=== PATIENT | male | born 1960 | race Caucasian/White ===

== ENCOUNTER 2024-08-18 18:40 | Emergency (ER) | payer OTHER, SELFPAY ==
[2024-08-18 18:59] LABS: % Basophils 0.6 % (0-2); % Eosinophils 4.5 % (0-6); % Immature Granulocytes 0.3 % (0-0.5); % Lymphocytes 17.1 % (20.5-51.1); % Monocytes 12.7 % (1.7-9.3); % Neutrophils 64.8 % (42.2-75.2); Absolute Eosinophils 0.3 10^3/uL (0-0.7); Absolute Lymphocytes 1.2 10^3/uL (1.2-3.4); Absolute Monocytes 0.9 10^3/uL (0.1-0.6); Absolute Neutrophils 4.5 10^3/uL (1.4-6.5); Hematocrit 39.1 % (39.0-52.0); Hemoglobin 14.2 g/dL (13.0-18.0); Mean Corp Hgb Conc. 36.3 g/dL (33.0-37.0); Mean Corpuscular Hgb 32.3 pg (27.0-31.0); Mean Corpuscular Volume 88.9 fL (80.0-94.0); Mean Platelet Volume 9.9 fL (7.4-10.4); Nucleated Red Blood Cells % 0 % (-); Platelet Count 255 10^3/uL (130-400); Red Cell Dist. Width 12.8 % (11.5-14.5); White Blood Cell Count 6.9 10^3/uL (4.8-10.8)
[2024-08-18 19:15] LABS: ALT (SGPT) 36 U/L (0-50); AST (SGOT) 42 U/L (17-59); Albumin 4.7 g/dl (3.5-5.0); Alkaline Phosphatase 59 U/L (38-126); Blood Urea Nitrogen 21 mg/dl (9-20); Calcium 9.8 mg/dl (8.4-10.2); Carbon Dioxide 24 mmol/L (22-30); Chloride 107 mmol/L (98-107); Glucose 114 mg/dl (70-99); Potassium 3.8 mmol/L (3.5-5.1); Sodium 140 mmol/L (135-145); Total Bilirubin 0.7 mg/dl (0.2-1.3); Total Protein 7.3 g/dl (6.3-8.2); eGFR > 60.00
[2024-08-18 19:26] LABS: Troponin I < 0.012 ng/ml
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
[2024-08-18 19:56] VITALS: BP 124/65
== END 2024-08-18 20:32 | disposition home or self-care (01) ==
LOC: EMR 18:40
PROVIDERS: EMERGENCY PHYSICIAN Student in an Organized Health Care Education/Training Program; FAMILY PHYSICIAN Physician Assistant Medical
DX: R55 Syncope and collapse (principal)
CPT/HCPCS: 99284; 80053; 84484; 85025; 93005

== ENCOUNTER 2024-08-20 08:24 | Inpatient (IN) | payer OTHER, SELFPAY ==
[2024-08-18 21:23] VITALS: BP 146/81
[2024-08-18 21:24] VITALS: BP 146/81; BMI 37.4
--- NOTE | 2024-08-18 21:36 | ED.GENMED ---
History of Present Illness
General
Chief Complaint: Fainting/Passed Out
Source: patient, spouse and family
Time Seen by Provider: 08/18/24 21:26
History of Present Illness
History of Present Illness:
Note:
CHIEF COMPLAINT(S)
Syncope episodes
HISTORY OF PRESENT ILLNESS
The patient is a 64-year-old male with a history of hypertension who presented back to the emergency department after experiencing another syncopal episode after getting home from being seen in the ED earlier this evening for the same.. He reports
the most recent episode as being shorter in duration than the first. Prior to the episodes, he was outside working in the yard all day with limited fluid intake. Following the incidents, the patient conveyed an unusual feeling of not feeling well.
At time of my exam again patient reports feeling in his usual state of health.
ADDITIONAL HISTORY OBTAINED FROM SOURCES OTHER THAN THE PATIENT
According to the patient�s son, the patient stated that he 'doesnt feel good' prior to the syncope episodes.
SOCIAL HISTORY
The patient does not currently smoke and quit smoking over a year ago. He denies recent alcohol use and any marijuana use.
Past History
Past History
ED Past Medical History: Other (Suspected early dementia)
ED Past Surgical History: None
Social History
Tobacco: Non-smoker
Alcohol: Occasional
Drug: None
Personal:
Living: with family
Review of Systems
Review of Systems
All Other Systems: ROS reviewed and negative except as documented in HPI and ROS
Phy Exam
Physical Exam
Physical Exam:
GENERAL: Alert , in no apparent distress
EYE: conjunctiva clear
NECK: Supple
ENT: o/p clr, mmm.
CARDIAC: Regular rate and rhythm
LUNGS: Clear breath sounds bilaterally, no acute respiratory distress, no wheezes/rales/rhonchi
NEUROLOGICAL: Alert and oriented
SKIN: Warm and dry, skin intact.
MUSCULOSKELETAL: well perfused.
PSYCH: Normal and appropriate interaction.
Scores
Heart Failure Risk
Heart Failure Risk Score: Not Applicable
Heart Score for Chest Pain Patients
STEMI patient?: Not applicable
Withdrawal Assessment of Alcohol
Withdrawal Assessment Completed?: Not applicable
Course
Orders/Labs/Results
Orders:
Orders
08/18/24 21:23
Electrocardiogram (*1) Urgent
Reason for Study: Syncope
EKG- Treatment ONCE
08/18/24 23:00
Flush (0.9% Sodium Chloride) [Flush (Nss)] See Dose Instructions IV PER PROTOCOL
08/18/24 21:22
08/18/24 21:22
Vital Signs
Initial and Last Documented VS:
Initial Vital Signs
Pulse Resp BP
63 19 146/81
08/18/24 21:23 08/18/24 21:23 08/18/24 21:23
Last Documented Vital Signs
Temp Pulse Resp BP Pulse Ox
98.0 F 68 15 146/81 98
08/18/24 21:24 08/18/24 21:30 08/18/24 21:30 08/18/24 21:24 08/18/24 21:40
MDM/Problems Addressed
Differential Diagnosis Includes:
The Differential Diagnosis includes, in no particular order and is not limited to:
- Vasovagal syncope
- Cardiac arrhythmia
- Orthostatic hypotension
- Dehydration
- Hypoglycemia
- Electrolyte imbalance
- Autonomic dysfunction
- Medication side effects
- Neurological disorder
- Myocardial infarction
MDM/Problems Addressed:
The patient will be admitted for overnight observation with a child monitor in place given he was just seen here earlier this evening for syncope as well.. The possibility of consulting with cardiology in the morning will be determined by the
hospitalist team.
*Pulse Oximetry
SaO2: 98
Oxygen Mode of Delivery: Room air
*EKG
Heart Rate: 68
Rate: normal
Rhythm: sinus
[place]: normal axis
Ischemia: no ischemia
*Rehab Therapist Interpretation
Rate: normal
Heart Rate: 71
Rhythm: sinus
*Critical Care Note
Total Time (30-74mins, 75-104mins- exclusive of procedures): Not Applicable
Patient Management
Discussion with other providers: Hospitalist
Escalation/DeEscalation of care consider admission/obs:
Hospitalist team aware and accepts for continued evaluation and treatment
ED Attending Note
-
Portions of this chart may have been created with voice recognition software.� Occasional wrong word or��sound alike� substitutions may have occurred due to the inherent limitations of voice recognition software.
Discharge Plan
Departure
Patient Disposition: Admit
Date of Disposition: 08/18/24
Time of Disposition: 21:36
Presentation/result/management discussed w/ accepting MD/DO: Hospitalist
Discharge Problem:
Syncope
Prescriptions:
No Action
donepezil 5 mg Tablet
5 mg PO HS
naproxen 500 mg Tablet,Delayed Release (Dr/Ec)
500 mg PO Q12H
hydrochlorothiazide 25 mg Tablet
25 mg PO DAILY
lisinopril 40 mg Tablet
40 mg PO DAILY
rosuvastatin 10 mg Tablet
10 mg PO DAILY
Interventions
Interventions:
*Risk Screen - Suicide Last Done: 08/18/24 21:24
*General Assessment Last Done: 08/18/24 21:24
*Neglect/Abuse Screening Last Done: 08/18/24 21:24
*ED- Fall Risk Assessment Last Done: 08/18/24 21:24
*ED COVID-19 Vaccine History Last Done: 08/18/24 21:24
ED- Cardiac Assessment Last Done: 08/18/24 21:47
ED- Neurological Assessment Last Done: 08/18/24 21:47
Discharge Date and Time
Print Language: CENTRAL AFRICAN
[2024-08-18 22:00] VITALS: BP 118/64
--- NOTE | 2024-08-18 22:18 | HPS.HSE ---
Family Physician
-
Family Physician: BRUNO DA SILVA PA-C
Chief Complaint
-
Recurrent syncopal episode
History of Present Illness
This is a 64-year-old male with past medical history of hyperlipidemia, hypertension, recent diagnosis of dementia and started on donepezil 2 weeks ago presenting to the emergency department with recurrent syncopal episode x 1 day.
Patient and spouse reported that they have been working in the yard earlier in the day taking care of damage from a recent stone. The apparently were hydrating themselves orally. After few hours of days patient was sitting down on a kitchen table
when all of a sudden he became unresponsive. Patient himself is unaware of this episode. It lasted for about a minute or less and then he came back to. There was no postictal depression. There was no bladder or bowel incontinence. Patient did
not collapse with this episode. He had no prodromal symptoms.
Was seen in the emergency department and had an extensive evaluation which showed no acute abnormality. He was hydrated with a liter of normal saline and was ultimately discharged.
After arriving home the patient sat down on the kitchen table and again had a syncopal episode. This time he reported that he told his son that he was not feeling well and then had a brief syncopal episode again lasting less than a minute before he
came to without any other associated symptoms. Denied having any chest pain recently. He denies any palpitations. He denies feeling dizzy or lightheaded. Only new medications with an episode that started 2 weeks ago. He has no recent episode of
melena hematochezia diarrhea nausea or vomiting.
Patient has no history of coronary artery disease but has a strong family history of pulmonary artery disease in parents.
In the emergency department he was afebrile, blood pressure was normal. He was not tachycardic and oxygen saturation was normal.
ECG showed a normal sinus rhythm at a rate of [address] or T wave changes. Initial troponin was negative. Electrolytes were all within the normal range. BUN/creatinine were normal. LFTs normal.
Medical History
Past Medical History
Past Medical History: Reports Dementia, HTN and Hypercholesterolemia
Past Surgical History: Reports None
Social History
Tobacco: Former Smoker
Alcohol: Former
Drug: None
Personal:
Living: With Family
Employment: Not Employed
Family History
Family History: CAD
Allergies / Home Medications
Allergies reflects when Allergies were last updated in [facility].
Home Medications with original date entered in [facility]
Allergy/Medication List:
Allergies
Allergy/AdvReac Type Severity Reaction Status Date / Time
No Known Allergies Allergy Verified 08/18/24 21:34
Home Medications
donepezil 5 mg tablet 5 mg PO HS 08/18/24
hydrochlorothiazide 25 mg tablet 25 mg PO DAILY 08/18/24
lisinopril 40 mg tablet 40 mg PO DAILY 08/18/24
naproxen 500 mg tablet,delayed release 500 mg PO Q12H 08/18/24
rosuvastatin 10 mg tablet 10 mg PO DAILY 08/18/24
Review of Systems
-
History Source: Patient and Family
Constitutional: Reports No Symptoms
EENT: Reports No Symptoms
Respiratory: Reports No Symptoms
Cardiac: Reports No Symptoms
Abdomen/GI: Reports No Symptoms
: Reports No Symptoms
Musculoskeletal: Reports No Symptoms
Skin: Reports No Symptoms
Neurological: Reports No Symptoms
Endocrine: Reports No Symptoms
Hematologic/Lymphatic: Reports No Symptoms
Psych: Reports No Symptoms
Physical Exam
Vital Signs
Vital Signs
Temp Pulse Resp BP Pulse Ox
98.0 F 68 15 146/81 98
08/18/24 21:24 08/18/24 21:30 08/18/24 21:30 08/18/24 21:24 08/18/24 21:40
Physical Exam
General: Well Developed, Well Nourished and No Apparent Distress
HEENT: NormoCephalic, Moist mucous membranes and Atraumatic
Respiratory: Clear
Cardiac: S1/S2 and Regular Rhythm; No Murmur or Rub
GI: Soft, Non Tender, Non Distended and Normal Bowel Sounds; No Organomegaly
Rectal: Deferred by Provider
Musculoskeletal: No Clubbing, No Cyanosis and No Edema
Skin: No Rash
Neuro: Nonfocal/grossly intact
Laboratory Results
-
08/18/24 21:22
08/18/24 21:22
Laboratory Results
Total Bilirubin Cancelled 08/18/24 21:22
AST Cancelled 08/18/24 21:22
ALT Cancelled 08/18/24 21:22
Alkaline Phosphatase Cancelled 08/18/24 21:22
Troponin I Cancelled 08/18/24 21:23
Data Reviewed
-
Medical Tests (Nuc Med, Echo, EKG etc): Image Personally Visualized and interpreted
Lab Data: Labs Reviewed by me
Old Records: Reviewed
Impression/Plan
-
IMPRESSION:
64-year-old with history of hypertension and recent diagnosis of dementia started on donepezil presents to the emergency department with 2 episodes of syncope/presyncope lasting less than a minute each. The second episode occurred after initial ED
evaluation and hydration and associated with sensation of feeling sick. His labs are completely within normal limits. Vital signs are currently stable. ECG is sinus without ischemic changes and troponin is negative.
PLAN:
1. Syncope -stable patient with no known cardiac history and no significant offending medications. Although low likelihood there is possibility that this may be related to bradycardia arrhythmia given the type of presentation. No usual kamron
agents.
- Admit to telemetry
- Cycle cardiac enzyme
- Check echocardiogram in the morning
- Orthostatic vital sign
- hold donepezil
- If no events on telemetry, will consider ambulatory monitoring.
- Continue lisinopril and thiazide
DVT prophylaxis�Lovenox subcu
CODE STATUS�full code
[2024-08-18 22:22] VITALS: BP 122/62
[2024-08-18 23:00] VITALS: BP 130/60
--- NOTE | 2024-08-18 23:30 | PTCARENOTE ---
Pt. admitted from E.D. with by his side, pulled over from stretcher, awake, alert, forgetful, SB with first degree AVB, bed alarm intact, call bolton within reach.
[2024-08-18 23:56] VITALS: BP 136/57; BMI 36.7
[2024-08-19] VITALS (17 sets, daily range): BP systolic 94–135; BP diastolic 53–108; PULSE 60–73; BMI 36.6
[2024-08-19] MEDS: TYLENOL 650 MG PO (00:20)
[2024-08-19] MEDS: MELATONIN 10 MG PO ×2 (00:21→22:48)
[2024-08-19] MEDS: ARICEPT 5 MG PO (00:28)
[2024-08-19 01:24] LABS: Troponin I < 0.012 ng/ml
--- NOTE | 2024-08-19 03:20 | PTCARENOTE ---
Pt. had a 11.04 sec pause, R.N. went into room to see pt. who was asleep, awoken pt. and asked 'are you feeling okay?', pt. noted he felt fine, had no pain and went back to sleep, notified ALFREDO Murillo, ordered to transfer pt. to IVU. Gave R.N.
report.
--- NOTE | 2024-08-19 03:30 | W.PN.UPDATE ---
Update Note
Progress Note Update
Reported by the nursing staff that the patient is bradycardia 30s-40s and had pauses up to 11 sec, per nursing staff, patient was sleeping at this time. Asymptomatic.
bp 120/66, RR 14, afebrile, Spo2 in 90s%
Discussed with the admitting physician, Cardiology consult placed and will transfer the patient to IVU.
[2024-08-19 04:22] LABS: Venous Blood Gas B.E. 0.5 mmol/L (-4 to +4); Venous Blood Gas HCO3 26.6 mmol/L (22-27); Venous Blood Gas O2 Sat % 97.2 %; Venous Blood Gas pCO2 47 mmHg (35-48); Venous Blood Gas pH 7.36 (7.32-7.43); Venous Blood Gas pO2 82 mmHg (30-50)
--- NOTE | 2024-08-19 04:31 | PTCARENOTE ---
received the patient from 4W. bedside report given with the nurse. patient awake and alert-disoriented to time. patient states feeling confused with whats going on. educated patient on plan of care. verbalized understanding. patient denies any
lightheadedness/dizziness. SR on tele 60s. bp stable. pacer pads on patient. bed alarm for safety. labs sent. awaiting any new orders.
[2024-08-19 05:02] LABS: HDL Cholesterol 41 mg/dl; LDL Cholesterol, Calculated 84 mg/dl; Total Cholesterol 141 mg/dl (50-199); Triglyceride 82 mg/dl (10-149); Very Low Density Lipoprotein 16 mg/dl (0-30)
[2024-08-19 05:17] LABS: Troponin I < 0.012 ng/ml
[2024-08-19 05:30] LABS: TSH 2.64 uIU/ml (0.47-4.68)
--- NOTE | 2024-08-19 07:01 | W.PN.HOSP.TC ---
Today's Communication/Plan
-
cont senior payroll specialist
Follow up Lyme studies
blood pressure control
Cardiac MRI and ECHO Wednesday
Assessment / Plan
Assessment / Plan
Physical Exam
General: No acute distress, appears comfortable, Obese
HEENT: NormoCephalic, Moist mucous membranes and Atraumatic
Respiratory: Clear
Cardiac: S1/S2 and Regular Rhythm; No Murmur or Rub
GI: Soft, Non Tender, Non Distended and Normal Bowel Sounds
Musculoskeletal: No Clubbing, No Cyanosis and No Edema
Skin: No Rash
Neuro: AOx3 conversant coherent
Psych: Calm
64M HTN recent diagnosis of dementia started on donepezil p/w 2 episodes of syncope/presyncope lasting less than a minute each. The second episode occurred after initial ED evaluation and hydration- associated with sensation of feeling sick. His
labs and VSS were benign. ECG sinus without ischemic changes and troponin consistently negative. 11 sec pause with associate bradycardia 30s-40s was noted on monitor while patient was sleeping.
PLAN:
#Syncope
#possible symptomatic Bradycardia
#11 sec heart pause noted on Tele while sleeping
#Obesity
- IVU admit
-cont senior payroll specialist
- troponin neg x3
- monitor Orthostatic vital sign, neg for orthostatic hypotension so far
- hold donepezil
- Continue home lisinopril and thiazide with holding parameters
-Cardio eval appreciated ECHO Cardiac MRI Wednesday, follow up Lyme studies
-outpt sleep study recommended
PT eval appreciated no needs
DVT prophylaxis�Lovenox subcu
CODE STATUS�full code
Discussed with patient and patient's Radha.
I spent a total of 40 minutes with the patient or on the floor. More than 50% of this time involved counseling and coordination of care.
Anticipated Discharge: > 48 hours
Subjective/Interval History
-
Date of Service: August 19, 2024
No acute distress resting comfortably in bed. Reports overall feeling well. Denies new acute issues at this time. AOx3 conversant coherent. Denies current lightheadedness or dizziness.
Objective Data
-
Labs:
Laboratory Results
08/18/24
21:22
WBC Cancelled
Hgb Cancelled
Hct Cancelled
Plt Count Cancelled
Sodium Cancelled
Potassium Cancelled
Chloride Cancelled
Carbon Dioxide Cancelled
BUN Cancelled
Creatinine Cancelled
Glucose Cancelled
Calcium Cancelled
Total Bilirubin Cancelled
AST Cancelled
ALT Cancelled
Alkaline Phosphatase Cancelled
Vital Signs:
Vital Signs
Temp Pulse Resp BP Pulse Ox
97.8 F 78 20 118/68 99
08/19/24 04:04 08/19/24 04:50 08/19/24 04:36 08/19/24 04:50 08/19/24 05:00
--- NOTE | 2024-08-19 08:00 | PTCARENOTE ---
Assumed care of pt from prev nsg shift; Pt AAOx2, pt confused to time at baseline;pt also forgetful at baseline & slow to respond to general questions. Pt w/no c/o CP or SOB. Pt w/VSS w/HR in the 50's & BP this AM 97/67. Pt is SB on telemetry
monitoring. Pt w/bed alarm in place for safety. Explained plan of care w/pt & pt verbalized understanding, but needed to be reminded a short time later. Pt also wpacer pads in place due to 11 sec pause noted last night. Pt w/call bolton within reach &
plan of care ongoing.
--- NOTE | 2024-08-19 08:28 | CON.CAR ---
Addendum entered and electronically signed by Hang Phillip MD 08/19/24 13:44:
I saw and examined the patient.
The CALL TAKER's note was reviewed and I agree with the note.
Comment: 64 y/o male with hypertension and possibly early dementia (sees neurology- recently started on donepezil) who is here for evaluation of syncope x 2.
He was on monitor when he had a 11s pause
- cardiac MRI Wednesday
- likely PPM thereafter
- r/o lyme disease
- discussed with EP, Dr Godinez, if pauses recur will have TVP inserted
Original Note:
Consultation
Consultation Request
Date/Time Consultation Requested: 08/19/24 0328
Date/Time Consultation Performed: 08/19/24 0800
Requesting Provider: Wali Murillo
Performing Provider: Love FUENTES for Dr. Phillip
Reason for Consultation: cardiac rhythm pause
Medical History
-
Chief Complaint: syncope x 2
History of Present Illness:
64 y/o male with hypertension and possibly early dementia (sees neurology- recently started on donepezil) who is here for evaluation of syncope x 2. Briefly, yesterday he was sitting in kitchen after working outside and had witnessed LOC. He thinks
he didn't feel right prior. He came to the ER and exam was benign, so he was sent home.
Past Medical History
Past Medical History: Hypercholesterolemia and Other (as above)
Social History
Tobacco: Former Smoker (stopped smoking about 3 years ago)
Alcohol: Former (stopped drinking about 3 years ago)
Family History
Family History: CAD (mom ME in her late 60's)
Allergies / Home Medications
Allergy/AdvReac Type Severity Reaction Status Date / Time
No Known Allergies Allergy Verified 08/18/24 21:34
�Medication �Instructions �Recorded �Confirmed �Type
donepezil 5 mg tablet 5 mg PO HS 08/18/24 08/18/24 History
hydrochlorothiazide 25 mg tablet 25 mg PO DAILY 08/18/24 08/18/24 History
lisinopril 40 mg tablet 40 mg PO DAILY 08/18/24 08/18/24 History
melatonin 5 mg tablet 10 mg PO HS 08/18/24 08/18/24 History
naproxen 500 mg tablet 500 mg PO Q12H 08/18/24 08/18/24 History
rosuvastatin 10 mg tablet 10 mg PO DAILY 08/18/24 08/18/24 History
therapeutic multivitamin 1 tab PO DAILY 08/18/24 08/18/24 History
Review of Systems
-
History Source: Patient
All other systems: Negative unless noted
Cardiac: Syncope
Physical Exam
Vital Signs
Temp Pulse Resp BP Pulse Ox
97.5 F 67 18 97/67 98
08/19/24 07:33 08/19/24 07:32 08/19/24 07:33 08/19/24 07:32 08/19/24 07:33
Lab Results
08/18/24 21:22
08/18/24 21:22
Troponin I < 0.012 ng/ml 08/19/24 04:10
Physical Exam
General: Well Developed, Well Nourished and No Apparent Distress
HEENT: Normocephalic and Anicteric
Respiratory: Clear and Non Labored Respirations
Cardiac: Regular Rhythm
Musculoskeletal: No Edema
Skin: Warm and Dry
Neuro: AO x 3
Psych: Calm
Impression / Plan
-
Syncope:
-x 2 yesterday
-pause noted on monitor as below- continue to monitor on telemetry and will discuss case with team
Cardiac pause: 11 seconds overnight
-this diagnosis is threat to life
-will discuss plan with maxillofacial prosthodontist/EP regarding need for pacing
-echo ordered, consider cardiac MRI, check lyme tests. Thyroid WNL.
-otherwise, patient likely with sleep apnea and should have sleep study as OP, but this does not explain yesterday's syncope
HTN:
-stable
-continue ACEI and HCTZ and follow
Memory issues:
-patient seeing neurologist and recently started on low dose donepezil
Data Reviewed
-
EKG: Tracing Personally Visualized and interpreted (NSR)
MRI: Other (may order cardiac MRI - discussing with team)
Medical Tests (Nuc Med, Echo etc): Other (echo ordered)
Labs: Labs Reviewed by me
[2024-08-19] MEDS: CRESTOR 10 MG PO (09:53)
[2024-08-19] MEDS: ZESTRIL 40 MG PO (09:54)
[2024-08-19] MEDS: ORETIC 25 MG PO (09:54)
[2024-08-19 10:24] LABS: Glycohemoglobin (HgbA1c) 5.3 % (4.0-5.6)
[2024-08-19] MEDS: NAPROSYN PO (15:16)
[2024-08-19] MEDS: LOVENOX 40 MG SC (18:35)
[2024-08-19] MEDS: NAPROSYN 500 MG PO (22:49)
--- NOTE | 2024-08-20 01:22 | PTCARENOTE ---
Pt. has had no pauses on tele so far this shift, NSR with some PAC's, rate down to the 40's-50's with sleep. Other vitals stable. Pt. very pleasant but forgetful and disoriented to place and circumstance, needs a lot of prompting to answer
questions correctly (couldn't recall year, forgets that he's in the hospital). Impulsive and quick on his feet, jumps up suddenly. Needs a lot of assistance with basic ADL's like toileting and has trouble following cues. PCT at bedside as
1:1 for safety & assistance. Pt. currently resting quietly.
[2024-08-20 03:16] VITALS: BP 120/64
[2024-08-20 03:57] LABS: Hemoglobin 13.4 g/dL (13.0-18.0); Mean Corp Hgb Conc. 34.4 g/dL (33.0-37.0); Mean Corpuscular Volume 90.3 fL (80.0-94.0); Mean Platelet Volume 10.3 fL (7.4-10.4); Platelet Count 255 10^3/uL (130-400); Red Blood Cell Count 4.32 10^6/uL (4.70-6.10); Red Cell Dist. Width 12.8 % (11.5-14.5); White Blood Cell Count 6.6 10^3/uL (4.8-10.8)
[2024-08-20 04:24] LABS: Blood Urea Nitrogen 21 mg/dl (9-20); Calcium 9.3 mg/dl (8.4-10.2); Carbon Dioxide 22 mmol/L (22-30); Chloride 109 mmol/L (98-107); Estimated Creatinine Clearance > 125 ml/min; Glucose 97 mg/dl (70-99); Phosphorus 4.4 mg/dl (2.5-4.5); Potassium 4.3 mmol/L (3.5-5.1); Sodium 140 mmol/L (135-145); eGFR > 60.00
--- NOTE | 2024-08-20 04:48 | PTCARENOTE ---
Pt. slept for a couple of hours, less confused than he was earlier in shift when woken for vitals (knows he's in hospital, just not which one). Asking to watch [employer]. Very pleasant. No events on telemetry, NSR.
--- NOTE | 2024-08-20 07:03 | W.PN.HOSP.TC ---
Today's Communication/Plan
-
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
Follow up Lyme studies
blood pressure control
Cardiac MRI and ECHO Wednesday
resume home donepezil 5 mg HS
Nicotine supplementation
Assessment / Plan
Assessment / Plan
Physical Exam
General: No acute distress, appears comfortable, Obese
HEENT: NormoCephalic, Moist mucous membranes and Atraumatic
Respiratory: Clear
Cardiac: S1/S2 and Regular Rhythm; No Murmur or Rub
GI: Soft, Non Tender, Non Distended and Normal Bowel Sounds
Musculoskeletal: No Clubbing, No Cyanosis and No Edema
Skin: No Rash
Neuro: AOx3 conversant coherent
Psych: Calm
64M HTN recent diagnosis of dementia started on donepezil p/w 2 episodes of syncope/presyncope lasting less than a minute each. The second episode occurred after initial ED evaluation and hydration- associated with sensation of feeling sick. His
labs and VSS were benign. ECG sinus without ischemic changes and troponin consistently negative. 11 sec pause with associate bradycardia 30s-40s was noted on monitor while patient was sleeping.
PLAN:
#Syncope
#possible symptomatic Bradycardia
#11 sec heart pause noted on Tele while sleeping
#Obesity
- IVU admit
-cont phototypesetting equipment monitor
- troponin neg x3
- monitor Orthostatic vital sign, neg for orthostatic hypotension so far
- home donepezil 5 mg HS resumed
- Continue home lisinopril and thiazide with holding parameters
-Cardio eval appreciated ECHO Cardiac MRI Wednesday, follow up Lyme studies
-outpt sleep study recommended
#Nicotine Dependence
Quit smoking a few years ago but remains on nicotine supplementation at home
Cont Low dose nicotine patch for now, prn nicorette ordered
PT eval appreciated no needs
DVT prophylaxis�Lovenox subcu
CODE STATUS�full code
Discussed with patient and patient's Radha and daughter Ely present at bedside
I spent a total of 40 minutes with the patient or on the floor. More than 50% of this time involved counseling and coordination of care.
Anticipated Discharge: 24 - 48 hours
Subjective/Interval History
-
Date of Service: August 20, 2024
No acute distress sitting up comfortably in chair. some confusion word finding difficulties noted but otherwise Alert Conversant Coherent. Family ( Radha and daughter Ely) present during evaluation.
Objective Data
-
Labs:
Laboratory Results
08/20/24
03:24
WBC 6.6
Hgb 13.4
Hct 39.0
Plt Count 255
Sodium 140
Potassium 4.3
Chloride 109 H
Carbon Dioxide 22
BUN 21 H
Creatinine 0.7
Glucose 97
Calcium 9.3
Vital Signs:
Vital Signs
Temp Pulse Resp BP Pulse Ox
98.2 F 70 16 120/64 98
08/20/24 03:17 08/20/24 03:16 08/20/24 03:17 08/20/24 03:16 08/20/24 03:17
I&O
08/19/24 08/20/24 08/21/24
06:59 06:59 06:59
Intake Total 1920 / 1920
Output Total 400 / 400
Balance 1520 / 1520
[2024-08-20 07:52] VITALS: BP 114/56
[2024-08-20] MEDS: THERAGRAN 1 TABLET PO (08:18)
[2024-08-20] MEDS: ZESTRIL 40 MG PO (08:18)
[2024-08-20] MEDS: CRESTOR 10 MG PO (08:21)
[2024-08-20] MEDS: ORETIC 25 MG PO (08:21)
[2024-08-20] MEDS: NAPROSYN 500 MG PO ×2 (08:25→21:57)
[2024-08-20] MEDS: NICODERM TRANSDERMAL 7 MG TRANSDERM (10:08)
[2024-08-20 11:16] VITALS: BP 107/59
--- NOTE | 2024-08-20 12:05 | PTCARENOTE ---
Pt received this am alert, oriented to place and self. Denies any pain, sob or dizziness or lightheadedness. Assisted oob to the BR, gait steady. Pt's and daughter at the bedside at 0800. Pt in SB - SR with no pauses.
[2024-08-20 15:20] VITALS: BP 100/56
[2024-08-20] MEDS: LOVENOX 40 MG SC (17:50)
[2024-08-20 19:32] VITALS: BP 125/65
[2024-08-20] MEDS: ARICEPT 5 MG PO (21:57)
[2024-08-20] MEDS: MELATONIN 10 MG PO (21:57)
[2024-08-20 22:01] VITALS: BP 110/71
[2024-08-21] VITALS (15 sets, daily range): BP systolic 95–129; BP diastolic 57–75; PULSE 79–80
--- NOTE | 2024-08-21 01:03 | PTCARENOTE ---
Received pt @ change of shift. Sleepy, arousable to verbal, oriented to self. NSR/SB on monitor, VSS. and daughter bedside; 1:1 [id number]. Discussed plan of care with family and pt. Understanding verbalized. Call bolton within reach.
[2024-08-21 05:43] LABS: Hemoglobin 13.6 g/dL (13.0-18.0); Mean Corp Hgb Conc. 34.9 g/dL (33.0-37.0); Mean Corpuscular Hgb 31.8 pg (27.0-31.0); Mean Corpuscular Volume 91.1 fL (80.0-94.0); Mean Platelet Volume 10.2 fL (7.4-10.4); Platelet Count 241 10^3/uL (130-400); Red Blood Cell Count 4.28 10^6/uL (4.70-6.10); Red Cell Dist. Width 12.8 % (11.5-14.5); White Blood Cell Count 6.3 10^3/uL (4.8-10.8)
[2024-08-21 06:01] LABS: Blood Urea Nitrogen 21 mg/dl (9-20); Calcium 9.3 mg/dl (8.4-10.2); Carbon Dioxide 25 mmol/L (22-30); Chloride 106 mmol/L (98-107); Estimated Creatinine Clearance > 125 ml/min; Glucose 92 mg/dl (70-99); Magnesium 1.9 mg/dl (1.6-2.3); Phosphorus 4.5 mg/dl (2.5-4.5); Potassium 4.2 mmol/L (3.5-5.1); Sodium 140 mmol/L (135-145); eGFR > 60.00
--- NOTE | 2024-08-21 07:26 | W.PN.HOSP.TC ---
Today's Communication/Plan
-
see a/p
Assessment / Plan
Assessment / Plan
Physical Exam
General: No acute distress, appears comfortable, Obese
HEENT: NormoCephalic, Moist mucous membranes and Atraumatic
Respiratory: Clear
Cardiac: S1/S2 and Regular Rhythm; No Murmur or Rub. Left pacemaker placement dressing clean dry intact
GI: Soft, Non Tender, Non Distended and Normal Bowel Sounds
Musculoskeletal: No Clubbing, No Cyanosis and No Edema
Skin: No Rash
Neuro: AOx3 conversant coherent
Psych: Calm
64M HTN recent diagnosis of dementia started on donepezil p/w 2 episodes of syncope/presyncope lasting less than a minute each. The second episode occurred after initial ED evaluation and hydration- associated with sensation of feeling sick. His
labs and VSS were benign. ECG sinus without ischemic changes and troponin consistently negative. 11 sec pause with associate bradycardia 30s-40s was noted on monitor while patient was sleeping.
PLAN:
#Syncope
#possible symptomatic Bradycardia
#11 sec heart pause noted on Tele while sleeping
#Obesity
- IVU admit
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
- troponin neg x3
- monitor Orthostatic vital sign, neg for orthostatic hypotension so far
- home donepezil 5 mg HS resumed
- Continue home lisinopril and thiazide with holding parameters
-neg lyme
- Cardiac MRI appreciated no myocarditis, myocardial injury, or diffuse infiltrative myocardial dz
- ECHO appreciated EF 61% no significant valve dz
-Cardio eval appreciated pacemaker placed 08/21/24
-outpt sleep study recommended
#Nicotine Dependence
Quit smoking a few years ago but remains on nicotine supplementation at home
Cont Low dose nicotine patch for now, prn nicorette ordered
PT eval appreciated no needs
DVT prophylaxis�Lovenox subcu
CODE STATUS�full code
Discussed with patient and patient's Radha and daughter Ely present at bedside
I spent a total of 40 minutes with the patient or on the floor. More than 50% of this time involved counseling and coordination of care.
Anticipated Discharge: Within 24 hours
Subjective/Interval History
-
Date of Service: August 21, 2024
Seen and examined at bedside in no acute distress, appears comfortable, ambulating without issues or need for assist device. Recent pacemaker placemen, dressing clean dry intact.
Objective Data
-
Labs:
Laboratory Results
08/21/24
04:55
WBC 6.3
Hgb 13.6
Hct 39.0
Plt Count 241
Sodium 140
Potassium 4.2
Chloride 106
Carbon Dioxide 25
BUN 21 H
Creatinine 0.7
Glucose 92
Calcium 9.3
Vital Signs:
Vital Signs
Temp Pulse Resp BP Pulse Ox
97.8 F 67 16 120/69 99
08/21/24 04:45 08/21/24 05:00 08/21/24 04:45 08/21/24 04:45 08/21/24 04:45
I&O
08/20/24 08/21/24 08/22/24
06:59 06:59 06:59
Intake Total 1920 / 1920
Output Total 400 / 400
Balance 1520 / 1520
--- NOTE | 2024-08-21 07:57 | W.PN.CD ---
Today's Communication / Plan
-
- ECHO today
- MRI today
- PPM today
Impression / Plan
-
Syncope:
-x 2 - related to pauses
-pause noted on monitor as below- continue to monitor on telemetry
Cardiac pause: 11 seconds overnight
- Over 20 second sinus pause with junctional escape at 11 seconds.
-this diagnosis is threat to life
-Will need PPM - plan for today
-echo 08/21/24: Normal biventricular size and systolic function without regional wall motion abnormality. LV ejection fraction is 61%. No valvular disease.
- Cardiac MRI - today
- lyme pending - low suspicion.
-otherwise, patient likely with sleep apnea and should have sleep study as OP, but this does not explain Recurrent syncope
HTN:
-stable
-continue ACEI and HCTZ and follow
Memory issues:
-patient seeing neurologist and recently started on low dose donepezil
Subjective: feels well
Physical Exam
Vital Signs/Labs
Vital Signs
Temp Pulse Resp BP Pulse Ox
97.8 F 67 16 120/69 99
08/21/24 04:45 08/21/24 05:00 08/21/24 04:45 08/21/24 04:45 08/21/24 04:45
08/21/24 04:55
08/21/24 04:55
Magnesium 1.9 mg/dl (1.6-2.3) 08/21/24 04:55
Triglycerides 82 mg/dl (10-149) 08/19/24 04:09
LDL Cholesterol, Calc 84 mg/dl 08/19/24 04:09
VLDL Cholesterol, Calc 16 mg/dl (0-30) 08/19/24 04:09
HDL Cholesterol 41 mg/dl 08/19/24 04:09
TSH 2.64 uIU/ml (0.47-4.68) 08/19/24 04:10
LAB Results
08/18/24 08/19/24 08/19/24
: 00:54 04:10
Troponin I Cancelled < 0.012 < 0.012
Physical Exam
Constitutional: No acute distress and Comfortable
EENT: Anicteric and Moist mucous membranes
Cardiovascular: Rhythm & rate is regular, Pedal edema is absent, JVD pressure is normal and Systolic murmur absent
Respiratory: Respiratory effort normal, Lungs clear to auscul. and Wheeze Absent
GI: Soft, Non tender and Normal bowel sounds
Neuro/Psych: Alert, Oriented, AO x 3 and Motor deficits absent
Other: Cardiac Device Site
Data Reviewed
-
Date of Service: August 21, 2024
Medical Decision Making: Reviewed Test Results, Test Interpretation and Review of Case with other Provider
EKG: Tracing Personally Visualized and interpreted
Echo: Tracing Personally Visualized and interpreted
X-Ray/CT/US/MRI/NUC/PET: Image Personally Visualized and interpreted
Medical Tests (PFT, Pathology etc): Discussed with Physician, Discussed with Nurse, Discussed with Patient and Discussed with Family
Labs: Labs Reviewed by me
Old Records: Reviewed
[2024-08-21 08:14] LABS: Glucose - Point of Care 95 mg/dl (70-99)
[2024-08-21] MEDS: ZESTRIL 40 MG PO (11:54)
[2024-08-21] MEDS: THERAGRAN 1 TABLET PO (11:54)
[2024-08-21] MEDS: ORETIC 25 MG PO (11:54)
[2024-08-21] MEDS: CRESTOR 10 MG PO (11:54)
[2024-08-21] MEDS: NAPROSYN PO (12:09)
[2024-08-21] MEDS: NICODERM TRANSDERMAL 7 MG TRANSDERM (12:49)
[2024-08-21 13:43] LABS: Lyme Antibody Screen, EIA Negative (Negative)
--- NOTE | 2024-08-21 16:28 | ITS.CL.PACE ---
Research Fellow - Pacemaker Implant
Pacemaker Implant
Procedure Report:
Dual Chamber Pacemaker Placement:
Mr. Nair is a very pleasant 64 yrs old gentleman with recurrent syncope with sinus arrest and long pause (11 seconds) with sick sinus syndrome. He is recommended for PPM placement.�
Indications: Sinus arrest with sick sinus syndrome with syncope
Date of the Procedure: 08/21/2024
Pre-Operative Diagnosis: Sinus arrest with sick sinus syndrome with syncope
Post-Operative Diagnosis: Sinus arrest with sick sinus syndrome with syncope
Procedure Performed: DUAL CHAMBER PACEMAKER IMPLANTATION
Performing Physician:
Lavern Godinez MD
Anesthesia:
See anesthesia records
Pre-operative antibiotics:
Ancef
Detailed Description of the Procedure:
The patient was identified using hospital identification and informed consent obtained for the procedure. The risks were explained including, but not limited to: Bleeding, infection, arrhythmia, stroke, vascular/cardiac/lung puncture, surgery,
pacemaker dependency/device malfunction. All questions were answered.
The patient was brought to the electrophysiology laboratory in stable condition in fasting state. Continuous electrocardiographic and hemodynamic monitoring was initiated. The initial rhythm was sinus rhythm.
A surgical pause and time out was performed immediately prior to the procedure with review of her medical history, recent labs, allergies and medications with site of procedure identified and consent noted in the chart. Antibiotics pre operatively
given. All team members concurred.
The procedure site was meticulously prepared with surgical scrub and allowed to dry with no pooling. Sterile draping was applied to cover the procedure site. The image intensifier was draped with sterile bag and positioned over the patient.
The left infraclavicular region was prepped and draped in the usual sterile fashion. Local anesthesia was administered subcutaneously using 1% lidocaine / Bupivacaine. The left cephalic vein cutdown was attempted. There was a small cephalic noted.
Following infiltration with local anesthetic, the axillary vein was accessed using the fluoroscopic guidance using the micro-puncture apparatus. The vascular sheaths were introduced for lead access. The leads were advanced into the right ventricle
and the right atrium.
The right ventricular lead was secured in position with an active fixation technique at the apical septal location.
The atrial lead was deployed to right atrial appendage and anchored with active fixation.�
There was excellent sensing, pacing, and impedance from the leads, with no diaphragmatic stimulation at 10 V output.�Bovie cautery, antibiotics, and fluoroscopy were used.
The sheaths were withdrawn, and the thresholds remained acceptable. The leads were secured in position at the venous entry site with 2-0 Ethibond. A pocket was fashioned contiguous to the incision.
A pursestring suture with 2-0 Vicryl was a deployed around the entry of the leads to secure the bleeding.
The electrode terminals were connected to the pulse generator, which was placed into the pocket. The wound was irrigated thoroughly with antibiotic solution. The pacemaker was secured to the underlying fascia with 2-0 Ethibond suture.
The wound was closed in 3 layers using 2-0 V Loc then 2 layers of 4-0 Monocryl sutures to the dermis. Steri-Strips and Aquacel applied to the wound.
Procedure End:
The procedure was tolerated well.
Estimated Blood loss:
5 cc
Specimens Removed:
No cultures and no specimens were obtained. No intraoperative pathology was identified.
Fluoro time:
6min / 29.6mGy
Urine output:
None
Packs / Drains/ Tubes:
None
Instrument / Sponge Count Correct:
Yes
Complications of the Procedure:
None
Condition of Patient at Time of Transfer:
Hemodynamically stable with no neurological or vascular compromise.
Device information:�
Generator: [employer]; Model: W1DR01; Serial # [id number]�
Atrial Lead: [employer]; Model: 5076-52; Serial # [id number]�
Measured data in the right atrium was sensing of 2.2 mV, impedance of 450 ohms and threshold of 1.75 V at 0.4ms.
RV Lead: [employer]; Model: 5076-58; Serial # [id number]
Measured data in the RV lead was sensing of 7.5mV, impedance of 780 ohms and threshold of 0.5 V at 0.4ms�
Brandon parameter settings were AAIR <=>DDDR 60-130 bpm. �
����������� Mode Switch: On
����������� Paced AV interval: 180ms
����������� Sensed AV interval: 150 ms.
����������� Rate Adaptive A-V Interval: Off
Output� parameters:
����������������������� Amplitude (V)������������� Pulse Width (ms)������� Sensitivity (mV)
����������� RA: ����� 3.5 ����������������� ����������� 0.4������������������ ����������� 0.3
����������� RV:������ 3.5������������������ ����������� 0.4������������������ ����������� 0.9
Summary:
Successful implantation of MRI compatible dual chamber Medtronic pacemaker
Results/Recommendations:
-Please follow up CXR�
1. Please provide patient with adequate pain control�
Instructions to be given to patient:�
- Please follow up with [facility] at [address] [place] [address] ([phone]) to get your wound checked within 14 days of your discharge.
- Do not wet incision site until after it is evaluated at cardiology clinic. No showers until then. Sponge baths are OK.�
- No swimming until cleared by the cardiology clinic.
- Do not lift left elbow above shoulder, particularly with sudden jerking movements, for 1 month�
- Do not lift anything weighing more than 10 pounds with the left arm for 1 month�
- If you notice any fevers, shortness of breath, lightheadedness, chest pain, or worsening swelling in the wound site, please contact the arrhythmia clinic, contact your managing consultant, or present to the hospital for evaluation.�
Lavern Godinez MD
Electrophysiology
--- NOTE | 2024-08-21 16:45 | CM ---
pt in CCL for PPM, cm to see in am
--- NOTE | 2024-08-21 19:18 | PTCARENOTE ---
pt back from ppm. sr on the monitor, hr in the 80s, vss. family at bedside visiting. left chest wall is CDI. pt offers no complaints at this time. pt resting in bed comfortably. pt and family educated on plan of care and all verbalized
understanding. call bolton within reach. Bed alarm in place.
[2024-08-21] MEDS: LOVENOX 40 MG SC (20:33)
[2024-08-21] MEDS: TYLENOL 650 MG PO (20:38)
--- NOTE | 2024-08-21 21:01 | PTCARENOTE ---
Assumed care on pt at 1900, aaox2, forgetful and confused at times, family at bedside. SR on the monitor,HR in the 70s, vss. LCW Aquacel dsg CDI, no swelling or bruising around the site, no c/o chest pain, no dizziness or SOB, left arm sling on, pt
reminded on post procedure restrictions. Pt sent for CXR via wheelchair, back to room at this time. Ambulating with assist x1 around the room. PRN Lozengers ordered and given for c/o throat pain. Staff sitting with pt d/t increase confusion at
night, bed alarm in place. Call bolton within reach.
[2024-08-21 22:26] LABS: Glucose - Point of Care 115 mg/dl (70-99)
[2024-08-21] MEDS: ANCEF 5 IV (22:40)
[2024-08-21] MEDS: NAPROSYN 500 MG PO (22:40)
[2024-08-21] MEDS: ANESTHETIC LOZENGE 1 LOZENGE PO (22:41)
[2024-08-21] MEDS: MELATONIN 10 MG PO (22:41)
[2024-08-21] MEDS: ARICEPT 5 MG PO (22:41)
[2024-08-22] VITALS (9 sets, daily range): BP systolic 104–152; BP diastolic 60–139; PULSE 59–75
[2024-08-22] MEDS: TYLENOL 650 MG PO ×3 (02:11→15:09)
--- NOTE | 2024-08-22 03:00 | PTCARENOTE ---
Pt c/o chest pressure and back pain, pointing at his upper abdomen then right chest,no c/o SOB, EKG obtained (see report), PRN Tylenol given and 2L O2 applied via NC. VSS. call center recruiter PA made aware via TT, no new orders. Right arm sling kept on. Pt
impulsive and restless overnight, needs frequent reminders and redirection, bed alarm in place, call bolton within reach.
[2024-08-22 03:15] LABS: Hematocrit 41.7 % (39.0-52.0); Hemoglobin 14.7 g/dL (13.0-18.0); Mean Corp Hgb Conc. 35.3 g/dL (33.0-37.0); Mean Corpuscular Hgb 31.7 pg (27.0-31.0); Mean Corpuscular Volume 90.1 fL (80.0-94.0); Mean Platelet Volume 10.5 fL (7.4-10.4); Platelet Count 265 10^3/uL (130-400); Red Blood Cell Count 4.63 10^6/uL (4.70-6.10); Red Cell Dist. Width 12.4 % (11.5-14.5); White Blood Cell Count 10.3 10^3/uL (4.8-10.8)
[2024-08-22 03:39] LABS: Blood Urea Nitrogen 26 mg/dl (9-20); Calcium 9.6 mg/dl (8.4-10.2); Carbon Dioxide 25 mmol/L (22-30); Chloride 104 mmol/L (98-107); Estimated Creatinine Clearance > 125 ml/min; Glucose 110 mg/dl (70-99); Phosphorus 4.6 mg/dl (2.5-4.5); Potassium 4.6 mmol/L (3.5-5.1); Sodium 139 mmol/L (135-145); eGFR > 60.00
[2024-08-22] MEDS: ANCEF 5 IV (05:44)
--- NOTE | 2024-08-22 07:27 | W.PN.CD ---
Today's Communication / Plan
-
- Start Colchicine - 0.6 mg BID for one week then 0.3 mg QD for 4 weeks.
- Stable for discharge from cardiac stand point.
Impression / Plan
-
Syncope:
-x 2 - related to pauses - now s/p PPM - Medtronic
- PPM 08/21/24 - Dual chamber - Medtronic
- Discontinue Lovenox.
- Frequent atrial pacing noted.
- The atrial lead was placed laterally as there were high thresholds in more medial targets.
- complaints of chest pain - CXR shows no PTX. Device and leads are stable.
-pause noted on monitor as below- continue to monitor on telemetry
- Cardiac pause: 11 seconds overnight
- Over 20 second sinus pause with junctional escape at 11 seconds.
-this diagnosis is threat to life
-Will need PPM - plan for today
-echo 08/21/24: Normal biventricular size and systolic function without regional wall motion abnormality. LV ejection fraction is 61%. No valvular disease.
- Cardiac MRI - 08/21/24 - No fibrosis.
- lyme pending - low suspicion.
-otherwise, patient likely with sleep apnea and should have sleep study as OP, but this does not explain Recurrent syncope
Pericarditis
- s/p PPM
- Chest pain could be incisional vs pericarditis.
- Mild pain
- Will start Colchicine
HTN:
-stable
-continue ACEI and HCTZ and follow
Memory issues:
-patient seeing neurologist and recently started on low dose donepezil
Subjective: feels well
Physical Exam
Vital Signs/Labs
Vital Signs
Temp Pulse Resp BP Pulse Ox
97.5 F 66 18 127/70 96
08/22/24 02:42 08/22/24 05:19 08/22/24 02:42 08/22/24 05:19 08/22/24 03:00
08/22/24 02:22
08/22/24 02:22
Magnesium 2.0 mg/dl (1.6-2.3) 08/22/24 02:22
Triglycerides 82 mg/dl (10-149) 08/19/24 04:09
LDL Cholesterol, Calc 84 mg/dl 08/19/24 04:09
VLDL Cholesterol, Calc 16 mg/dl (0-30) 08/19/24 04:09
HDL Cholesterol 41 mg/dl 08/19/24 04:09
TSH 2.64 uIU/ml (0.47-4.68) 08/19/24 04:10
Physical Exam
Constitutional: No acute distress and Comfortable
EENT: Anicteric and Moist mucous membranes
Cardiovascular: Rhythm & rate is regular, Pedal edema is absent and JVD pressure is normal
Respiratory: Respiratory effort normal, Lungs clear to auscul. and Wheeze Absent
GI: Soft, Non tender and Normal bowel sounds
Neuro/Psych: Alert, Oriented, AO x 3 and Motor deficits absent
Other: Cardiac Device Site
Data Reviewed
-
Date of Service: August 22, 2024
Medical Decision Making: Reviewed Test Results, Test Interpretation and Review of Case with other Provider
EKG: Tracing Personally Visualized and interpreted
Echo: Report Reviewed by me
X-Ray/CT/US/MRI/NUC/PET: Image Personally Visualized and interpreted
Medical Tests (PFT, Pathology etc): Discussed with Patient and Discussed with Family
Labs: Labs Reviewed by me
Old Records: Reviewed
--- NOTE | 2024-08-22 07:39 | W.PN.HOSP.TC ---
Today's Communication/Plan
-
discharge
Assessment / Plan
Assessment / Plan
Physical Exam
General: No acute distress, appears comfortable, Obese
HEENT: NormoCephalic, Moist mucous membranes and Atraumatic
Respiratory: Clear
Cardiac: S1/S2 and Regular Rhythm; No Murmur or Rub. Left pacemaker placement dressing clean dry intact
GI: Soft, Non Tender, Non Distended and Normal Bowel Sounds
Musculoskeletal: No Clubbing, No Cyanosis and No Edema
Skin: No Rash
Neuro: AOx3 conversant coherent
Psych: Calm
64M HTN recent diagnosis of dementia started on donepezil p/w 2 episodes of syncope/presyncope lasting less than a minute each. The second episode occurred after initial ED evaluation and hydration- associated with sensation of feeling sick. His
labs and VSS were benign. ECG sinus without ischemic changes and troponin consistently negative. 11 sec pause with associate bradycardia 30s-40s was noted on monitor while patient was sleeping.
PLAN:
#Syncope
#possible symptomatic Bradycardia
#11 sec heart pause noted on Tele while sleeping
#Obesity
- IVU admit
-cont surveillance monitor
- troponin neg x3
- monitor Orthostatic vital sign, neg for orthostatic hypotension so far
- home donepezil 5 mg HS resumed, tolerating
- Continue home lisinopril and thiazide with holding parameters
-neg lyme
- Cardiac MRI appreciated no myocarditis, myocardial injury, or diffuse infiltrative myocardial dz
- ECHO appreciated EF 61% no significant valve dz
-Cardio eval appreciated pacemaker placed 08/21/24
-outpt sleep study recommended
#possible pericarditis 2/2 pacemaker placement
Colchicine 0.6 mg BID 1 wk then daily 0.3mg for 4 wks as per cardio
#Nicotine Dependence
Quit smoking a few years ago but remains on nicotine supplementation at home
Cont Low dose nicotine patch for now, prn nicorette ordered
PT eval appreciated no needs
DVT prophylaxis�Lovenox subcu
CODE STATUS�full code
Medically stable for discharge home with outpatient follow up recommendations
Discussed with patient and patient's Radha and daughter Ely present at bedside
Total Time Preparing Discharge ___40____ minutes including examination of the patient, summary of the hospital stay, instructions for continuing care to all relevant caregivers; and preparation of discharge records, prescriptions, and referral
forms if necessary.
Anticipated Discharge: Today
Subjective/Interval History
-
Date of Service: August 22, 2024
overall reports feeling well. eager to go home. Family Radha and daughter Ely present during evaluation.
Objective Data
-
Labs:
Laboratory Results
08/22/24
02:22
WBC 10.3
Hgb 14.7
Hct 41.7
Plt Count 265
Sodium 139
Potassium 4.6
Chloride 104
Carbon Dioxide 25
BUN 26 H
Creatinine 0.7
Glucose 110 H
Calcium 9.6
Vital Signs:
Vital Signs
Temp Pulse Resp BP Pulse Ox
97.5 F 71 18 127/70 96
08/22/24 02:42 08/22/24 07:00 08/22/24 02:42 08/22/24 05:19 08/22/24 03:00
I&O
08/21/24 08/22/24 08/23/24
06:59 06:59 06:59
Intake Total 480 / 480
Balance 480 / 480
--- NOTE | 2024-08-22 08:00 | PTCARENOTE ---
Assumed care of pt from prev nsg shift; Pt AAOx1-2, pt confused to time at baseline & confused to place hwne first waking up; pt also forgetful at baseline & slow to respond to general questions. Pt w/no c/o CP or SOB. Pt does c/o chest discomfort
which he's unable to rate in his L upper chest & upper abd. PRN Tylenol administered as ordered & pt'd LUE immobilizer removed. Pt w/VSS w/HR in the 50's-60's & BP this AM 110/60. Pt is A-paced on telemetry monitoring. Pt w/new L chestwall PPM
w/dressing C/D/I w/no signs or symptoms of bleeding or hematoma. Pt w/bed & chair alarms in place for safety. Explained plan of care w/pt & pt verbalized understanding, but needed to be reminded a short time later. Pt w/call bolton within reach & plan
of care ongoing.
[2024-08-22] MEDS: CRESTOR 10 MG PO (08:56)
[2024-08-22] MEDS: ZESTRIL 40 MG PO (08:56)
[2024-08-22] MEDS: ORETIC 25 MG PO (08:56)
[2024-08-22] MEDS: COLCHICINE 0.6 MG PO (08:56)
[2024-08-22] MEDS: THERAGRAN 1 TABLET PO (08:56)
[2024-08-22] MEDS: NICODERM TRANSDERMAL 7 MG TRANSDERM (11:54)
[2024-08-22] MEDS: NAPROSYN 500 MG PO (11:54)
--- NOTE | 2024-08-22 14:24 | CM ---
spoke to pt in room, he is prev indep, lives with his in a ranch home with 2 steps to enter. he denies any dc planning needs or dme's. plan is for dc to home when medically stable.
[2024-08-22] MEDS: ANESTHETIC LOZENGE 1 LOZENGE PO (15:09)
--- NOTE | 2024-08-22 15:49 | W.DCSUMMARY ---
Discharge Summary
Discharge Data
Date of Admission: 08/20/24
Date of Discharge: 08/22/24
-
Pending Results: No
Discharge Plan
-
Patient Disposition: Home (Routine Discharge)
Discharge Diagnosis/Procedures: Syncope
Sinus pause
Pericarditis
Procedure: Dual-chamber [employer] pacemaker implantation 08/21/2024
Obesity
Condition: Good
Diet: Low Cholesterol and 2 Gram Sodium
Activity: No strenuous activity
Additional Activity: For 4 weeks. See attached instructions.
Driving Restrictions: No driving for 1 week
Others Tests: Follow up with primary care provider for outpatient sleep study in 1 month of discharge.
Activity Restrictions/Additional Instructions:
Follow up with primary care provider in 1 week of discharge and keep your appointment with Cardiology.
Tylenol prescribed as needed for pain. This is available over the counter.
Colchicine has been prescribed for pericarditis secondary to pacemaker placement:
0.6 mg twice a day for 1 week 08/22-08/28 then 0.3 mg (half a tab) once a day for 4 weeks 08/29-09/25
Please take medications as prescribed/recommended and follow up with primary care provider, cardiology, and/or other healthcare provider involved in your care for refills and/or further adjustment to your medication regimen as necessary.
Stand Alone Forms: DC Inst - Implanted Device
Referrals:
Jocelin Whitaker NP [[facility]ified Professional Person[facility], Cardiology] - 08/30/24 2:00 pm
Referral Note: Post device incision check appointment
Evaristo Ackerman PA-C [Family Provider] - in one week
Prescriptions:
New
colchicine 0.6 mg Tablet
0.6 mg PO BID 7 Days Qty: 14 0RF
Rx Instructions:
08/28/24Wednesday last day for this medication at this dose
colchicine 0.6 mg Tablet
0.3 mg PO DAILY 28 Days Qty: 14 0RF
Rx Instructions:
Start 08/29/24 and continue through 09/25/24 last day.
acetaminophen 325 mg Tablet
650 mg PO Q6HPRN PRN (Reason: mild pain/ fever>100.5F) Qty: 60 0RF
Continued
donepezil 5 mg Tablet
5 mg PO HS
hydrochlorothiazide 25 mg Tablet
25 mg PO DAILY
lisinopril 40 mg Tablet
40 mg PO DAILY
rosuvastatin 10 mg Tablet
10 mg PO DAILY
therapeutic multivitamin Tablet
1 tab PO DAILY
naproxen 500 mg Tablet
500 mg PO Q12H
melatonin 5 mg Tablet
10 mg PO HS
Discharge Orders:
Discharge Patient (As Directed); Ordered 08/22/24
Ordered By: Jovan Jauregui
Care Plan Goals
Care Plan Goals:
Problem: Readiness for enhanced knowledge related to diagnosis and treatment plan
Goal: Understand your diagnosis and treatment plan needs, including medications if applicable.
Instructions: Know your diagnosis, underlying causes and treatment plan options, including medications if applicable. Consult with your health care team to learn about your diagnosis and treatment plan, including medications if applicable.
Discharge Date and Time
Print Language: IVORIAN
[2024-08-22 16:01] LABS: Hepatitis C Antibody Negative (Negative)
--- NOTE | 2024-08-22 17:49 | PTCARENOTE ---
Pt's IV line & telemetry pack D/C'd. D/C instructions discussed w/pt, pt's , & daughter, who is a nurse. 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 Pt escorted out via WC by staff w/spouse driving pt home.
== END 2024-08-22 17:25 | disposition home or self-care (01) | DRG 244 ==
LOC: IVU 08:24
PROVIDERS: Internal Medicine Cardiovascular Disease; Nurse Practitioner; Nurse Practitioner Family; ADMITTING PHYSICIAN Internal Medicine; ATTENDING PHYSICIAN Internal Medicine; CONSULT PHYSICIAN Internal Medicine Cardiovascular Disease; EMERGENCY PHYSICIAN Emergency Medicine; FAMILY PHYSICIAN Physician Assistant Medical
PROC: 0JH606Z Insertion of Pacemaker, Dual Chamber into Chest Subcutaneous Tissue and Fascia, Open Approach (ICD-10-PCS; 2024-08-21)
PROC: 02HK3JZ Insertion of Pacemaker Lead into Right Ventricle, Percutaneous Approach (ICD-10-PCS; 2024-08-21)
PROC: 02H63JZ Insertion of Pacemaker Lead into Right Atrium, Percutaneous Approach (ICD-10-PCS; 2024-08-21)
DX: I49.5 Sick sinus syndrome (principal); R55 Syncope and collapse; I10 Essential (primary) hypertension; E66.9 Obesity, unspecified; E78.00 Pure hypercholesterolemia, unspecified; F03.90 Unspecified dementia, unspecified severity, without behavioral disturbance, psychotic disturbance, mood disturbance, and anxiety; F17.290 Nicotine dependence, other tobacco product, uncomplicated; Z82.49 Family history of ischemic heart disease and other diseases of the circulatory system; Z68.36 Body mass index [BMI] 36.0-36.9, adult
CPT/HCPCS: 33208; 71045; 75561; 80048; 80061; 82805; 82962; 83036; 83735; 84100; 84443; 84484; 85027; 86618; 86803; 93005; 93306; 97162; 99285; A9585; C1785; C1892; C1898; Q9967